=== PATIENT | female | born 1975 | race Hispanic/Latino ===

== ENCOUNTER 2021-05-07 10:04 | Outpatient (CLI) | payer OTHER ==
--- NOTE | 2021-05-07 12:34 | Mammography Report ---
DIGITAL DIAGNOSTIC MAMMOGRAM WITH CAD , 05/07/2021 CLINICAL INFORMATION / INDICATION: Palpable left breast lump TECHNIQUE: Digital bilateral mammographic imaging was performed. Spot compression views were obtaine d. This examination was interpreted with the benefit of Computer-aided Detection analysis. COMPARISON: Prior mammogram 03/26/2020 FINDINGS: Breast Density: The breasts are heterogeneously dense, which may obscure small masses. FINDINGS: The right breast is unremarkable without mass, suspicious calcifications, or architectural distortion. There is a 4.3 cm round mass in the posterior aspect of the upper inner left breast at approximately 11:00. The mass is abutting the pectoralis muscle, and accounts for the palpable lump. Spot compressi on views of the mass were obtained which demonstrate the margins to be slightly irregular.. This mass is new compared to the prior mammogram of 03/26/2020. Left axillary lymph nodes appear slightly promi nent on these limited views of the axilla. IMPRESSION: There is a 4.3 cm round mass in the left breast at 11:00 corresponding to the patient's p alpable lump. This is a new finding compared with the 2019 mammogram. Left breast ultrasound is recom mended for further evaluation of the palpable lump as well as of the left axilla.. Follow up recommendation: Ultrasound BI-RADS Category 0: Incomplete. Needs additional imaging evaluation and/or prior mammograms for richard mccall. A "normal" or negative report should not discourage follow up or biopsy of a clinically significant f inding. A written summary of these findings will be mailed to the patient. The patient will be entered into a mammography reporting system which will generate a reminder letter for the patient's next appointmen t at the appropriate interval. According to the [employer], yearly mammograms are recommended starting at age 40 and continuing as long as a woman is in good health. Breast MRI is recommended for women with an rebecca roximately 20-25% or greater lifetime risk of breast cancer, including women with a strong family his tory of breast or ovarian cancer and women who have been treated for Hodgkin's disease. Signer Name: Chanda Lee MD Signed: 05/07/2021 12:30 PM Workstation Name: [id number]
== END 2021-05-07 10:05 | disposition home or self-care (01) ==
LOC: SPVWC 10:04
PROVIDERS: ATTEND Family Medicine Adult Medicine
DX: N63.22 Unspecified lump in the left breast, upper inner quadrant (principal); N63.0 Unspecified lump in unspecified breast
CPT/HCPCS: 77066

== ENCOUNTER 2021-05-13 10:30 | Outpatient (CLI) | payer OTHER ==
--- NOTE | 2021-05-13 11:57 | Ultrasound Report ---
ULTRASOUND BREAST LEFT LIMITED, 05/13/2021 CLINICAL INFORMATION / INDICATION: ABNORMAL MAMMOGRAM. Left breast palpable lump TECHNIQUE: Targeted ultrasound evaluation was performed of the area of interest. COMPARISON: Recent mammogram 05/07/2021 FINDINGS: Sonographic evaluation of the upper inner left breast demonstrates a large solid mass measuring 3.7 x 2.9 x 3.6 cm, 9 cm from nipple at 11:00. Margins of this mass are slightly irregular. This correspon ds to the palpable lump as well as to mass noted on recent mammogram. There is peripheral vascularity . Additionally, evaluation of the left axilla demonstrates a few lymph nodes with mild cortical thicken ing measuring 5-6 mm. IMPRESSION: 3.7 cm solid mass in the left breast at 11:00 is highly suggestive of malignancy and furt her evaluation with biopsy is recommended. Additionally there are abnormal lymph nodes in the left ax illa which could indicate the presence of metastatic adenopathy. Follow up recommendation: Biopsy BI-RADS Category 5: Highly Suggestive of Malignancy. A normal or "negative" report should not preclude biopsy or follow-up of a clinically suspicious find ing. Signer Name: Chanda Lee MD Signed: 05/13/2021 11:53 AM Workstation Name: [id number]
== END 2021-05-13 10:31 | disposition home or self-care (01) ==
LOC: SPVWC 10:30
PROVIDERS: ATTEND Hospitalist
DX: N63.22 Unspecified lump in the left breast, upper inner quadrant (principal); R92.8 Other abnormal and inconclusive findings on diagnostic imaging of breast

== ENCOUNTER 2021-06-01 13:25 | Outpatient (CLI) | payer OTHER ==
--- NOTE | 2021-06-01 15:23 | Ultrasound Report ---
ULTRASOUND GUIDED LEFT AXILLARY LYMPH NODE BIOPSY, 06/01/2021 CLINICAL INFORMATION / INDICATION: R92.8. Patient presents for left breast and left axillary lymph no de biopsy. COMPARISON: Prior mammogram 05/07/2021 and left breast ultrasound 05/13/2021 PROCEDURE: Risks, benefits, and indications to the procedure were discussed with the patient in detail, includin g bleeding, infection, hematoma formation, and inadequate tissue sampling. The patient agreed to proc eed with both verbal and written consent. A timeout procedure was performed with two patient identifi ers. The breast was prepped and draped in the usual sterile fashion. Lidocaine 1% with and without epineph rine were used for local anesthesia. Under direct ultrasound guidance, multiple core samples were obt ained of the enlarged left axillary lymph node. A biopsy marker was then placed. Biopsy device was r emoved and hemostasis achieved with manual pressure. A sterile dressing was applied to the skin. The patient tolerated the procedure without difficulty. No complications were encountered. Postbiopsy instructions were discussed with the patient and given in writing. Specimens were sent to pathology. IMPRESSION: 1. Technically successful ultrasound guided left axillary lymph node biopsy. 2. Please refer to separately dictated left breast ultrasound-guided biopsy report. Biopsy results are pending and will be reported in an addendum. Signer Name: Radha Reed MD Signed: 06/01/2021 3:19 PM Workstation Name: [id number]
--- NOTE | 2021-06-01 15:27 | Ultrasound Report ---
ULTRASOUND GUIDED LEFT BREAST BIOPSY, 06/01/2021 CLINICAL INFORMATION / INDICATION: R92.8. Patient presents for left breast and left axillary ultrasou nd-guided biopsy. COMPARISON: Prior mammogram 05/07/2021 and left breast ultrasound 05/13/2021 PROCEDURE: Risks, benefits, and indications to the procedure were discussed with the patient in detail, includin g bleeding, infection, hematoma formation, and inadequate tissue sampling. The patient agreed to proc eed with both verbal and written consent. A timeout procedure was performed with two patient identifi ers. The breast was prepped and draped in the usual sterile fashion. Lidocaine 1% with and without epineph rine were used for local anesthesia. Under direct ultrasound guidance, multiple core samples were obt ained of the mass in the 11:00 left breast located 9 cm from the nipple. A biopsy marker was then pl aced. Biopsy device was removed and hemostasis achieved with manual pressure. A sterile dressing was applied to the skin. The patient tolerated the procedure without difficulty. No complications were encountered. Postbiopsy instructions were discussed with the patient and given in writing. Specimens were sent to pathology. IMPRESSION: 1. Technically successful ultrasound guided left breast biopsy. 2. Please note, patient has focal tenderness associated with this mass and prior to the biopsy there was overlying skin erythema. The patient denies fevers. The patient was counseled that if the erythem a worsens, she should contact her ordering doctor, and a course of antibiotics could be considered. 3. Please refer to separately dictated left axillary lymph node biopsy. Biopsy results are pending and will be reported in an addendum. Signer Name: Radha Reed MD Signed: 06/01/2021 3:23 PM Workstation Name: [id number]
== END 2021-06-01 13:26 | disposition home or self-care (01) ==
LOC: SPVWC 13:25
PROVIDERS: ATTEND Family Medicine Adult Medicine
DX: R92.8 Other abnormal and inconclusive findings on diagnostic imaging of breast (principal); Z79.899 Other long term (current) drug therapy
CPT/HCPCS: 38505; 88305; 88341; 88342